=== PATIENT | female | born 1955 | race Caucasian/White ===

== ENCOUNTER 2017-02-12 07:42 | Day surgery (SDC) | payer OTHER ==
[~2017-02-12 07:42] MED LIST: CETI10CA PO; CHOL5000 PO; CYAN250010 PO; HYDROCHLOROTHIAZIDE PO; LEVO125T6 PO; MAGN250T29 PO; MULT-1073 PO; POTA10TA12 PO; TRIAMTERENE PO; VIT1TABL25 PO; VITA150T PO; WARF5TAB7 PO
[2017-02-12] MEDS ORDERED: Lidocaine Topical 2% 30 mL Jelly ONE (08:05)
== END 2017-02-12 23:59 | disposition home or self-care (01) ==
LOC: END 07:42
PROVIDERS: ATTEND Internal Medicine Gastroenterology
DX: K21.9 Gastro-esophageal reflux disease without esophagitis (principal); R13.10 Dysphagia, unspecified